=== PATIENT | female | born 1970 | race Caucasian/White ===

== ENCOUNTER 2017-02-23 17:51 | Emergency (ER) | payer BC, MEDICAID ==
[2017-02-23] MEDS ORDERED: Albuterol/Ipratropium 3.0-0.5 MG/3 ML Neb Soln NEB ONE (18:08)
[2017-02-23] MEDS ORDERED: methylPREDNISolone Sodium Succinate 125 MG/2 ML SDV IM ONE (18:45)
--- NOTE | 2017-02-23 18:54 | EDM.PDOC ---
ED HPI GENERAL MEDICAL PROBLEM - General Chief Complaint: Respiratory Problem Stated Complaint: NOT FEELING WELL Time Seen by Provider: 02/23/17 18:51 Source of Information: Reports: Patient History Limitations: Reports: No Limitations - History of Present Illness INITIAL COMMENTS - FREE TEXT/NARRATIVE: History of present illness: [46-year-old female comes in with complaints of an intractable cough. Patient was recently treated for an upper reinfection.] Review of systems: As per history of present illness and below otherwise all systems reviewed and negative. Past medical history: As per history of present illness and as reviewed below otherwise noncontributory. Surgical history: As per history of present illness and as reviewed below otherwise noncontributory. Social history: No reported history of drug or alcohol abuse. Family history: As per history of present illness and as reviewed below otherwise noncontributory. Physical exam: HEENT: Atraumatic, normocephalic, pupils reactive, negative for conjunctival pallor or scleral icterus, mucous membranes moist, throat clear, neck supple, nontender, trachea midline. Lungs: Dim throughout with a coarse nonproductive cough, breath sounds equal bilaterally, chest nontender. Heart: S1S2, regular, negative for clicks, rubs, or JVD. Abdomen: Soft, nondistended, nontender. Negative for masses or hepatosplenomegaly. Negative for costovertebral tenderness. Pelvis: Stable nontender. Genitourinary: Deferred. Rectal: Deferred. Extremities: Atraumatic, negative for cords or calf pain. Neurovascular unremarkable. Neuro: Awake, alert, oriented. Cranial nerves II through XII unremarkable. Cerebellum unremarkable. Motor and sensory unremarkable throughout. Exam nonfocal. Patient is concerned she might drink remains a pneumonia and would like a chest x-ray to evaluate that Diagnostics: [] Therapeutics: [DuoNeb] Impression: [Bronchitis] Plan: [] Definitive disposition and diagnosis as appropriate pending reevaluation and review of above. chest heaviness Pain Score (Numeric/FACES): 6 - Related Data Allergies Allergy/AdvReac Type Severity Reaction Status Date / Time No Known Allergies Allergy Verified 02/23/17 18:12 Home Meds: Home Meds ARIPiprazole [Aripiprazole] 5 mg PO DAILY 02/23/17 [History] Dexlansoprazole [Dexilant] 30 mg PO DAILY 02/23/17 [History] Diltiazem HCl [Diltiazem 24Hr Cd] 180 mg PO DAILY 02/23/17 [History] Escitalopram Oxalate [Lexapro] 30 mg PO DAILY 02/23/17 [History] Fesoterodine Fumarate [Toviaz] 4 mg PO DAILY 02/23/17 [History] Gabapentin [Neurontin] 800 mg PO QID 02/23/17 [History] Ibuprofen [Motrin] 800 mg PO Q8H 02/23/17 [History] Levofloxacin 500 mg PO DAILY 02/23/17 [History] Levothyroxine Sodium [Levoxyl] 25 mcg PO DAILY 02/23/17 [History] Loratadine 10 mg PO DAILY 02/23/17 [History] Loratadine [Claritin] 10 mg PO DAILY 02/23/17 [History] Metoprolol Tartrate [Lopressor] 25 mg PO Q12HR 02/23/17 [History] Modafinil [Provigil] 200 mg PO DAILY 02/23/17 [History] atorvaSTATin Calcium [Atorvastatin Calcium] 10 mg PO DAILY 02/23/17 [History] tiZANidine HCl [Tizanidine HCl] 4 mg PO DAILY 02/23/17 [History] Past Medical History Cardiovascular History: Reports: High Cholesterol, Hypertension, [place] Gastrointestinal History: Reports: GERD Genitourinary History: Reports: Urinary Incontinence Psychiatric History: Reports: Bipolar, Other (See Below) Other Psychiatric History: boarder line personalitiy Endocrine/Metabolic History: Reports: Hypothyroidism Oncologic (Cancer) History: Reports: Uterine - Infectious Disease History Infectious Disease History: Reports: Chicken Pox - Past Surgical History Cardiovascular Surgical History: Reports: None GI Surgical History: Reports: Hernia, Abdominal Musculoskeletal Surgical History: Reports: Other (See Below) Other Musculoskeletal Surgeries/Procedures:: L4-S1 fusion Social & Family History - Family History Family Medical History: Noncontributory - Tobacco Use Smoking Status *Q: Never Smoker Second Hand Smoke Exposure: No - Caffeine Use Caffeine Use: Reports: Coffee, Energy Drinks, Soda, Tea - Recreational Drug Use Recreational Drug Use: No ED ROS GENERAL - Review of Systems Review Of Systems: See Below (History of present illness) ED EXAM, GENERAL - Physical Exam Exam: See Below (See history of present illness) Course - Orders/Labs/Meds Orders: Active Orders 24 hr Category Date Time Status RT Aerosol Therapy [RC] ASDIRECTED Care 02/23/17 18:08 Ordered Chest 2V [CR] Stat Exams 02/23/17 18:08 Ordered Meds: Medications Discontinued Medications Generic Name Dose Route Start Last Admin Trade Name Cabrera PRN Reason Stop Dose Admin Albuterol/Ipratropium 3 ml 02/23/17 18:08 02/23/17 18:15 Duoneb 3.0-0.5 Mg/3 Ml NEB 02/23/17 18:09 3 ml ONETIME ONE Administration Methylprednisolone Sodium Succinate 125 mg 02/23/17 18:45 Solu-Medrol IM 02/23/17 18:46 ONETIME ONE Departure - Departure Time of Disposition: 18:52 Disposition: Home, Self-Care 01 Condition: Good Clinical Impression: Bronchitis - Discharge Information Instructions: Acute Bronchitis, [id number] Referrals: PCP,None [Primary Care Provider] - Additional Instructions: The following information is given to patients seen in the emergency department who are being discharged to home. This information is to outline your options for follow-up care. We provide all patients seen in our emergency department with a follow-up referral. The need for follow-up, as well as the timing and circumstances, are variable depending upon the specifics of your emergency department visit. If you don't have a primary care physician on staff, we will provide you with a referral. We always advise you to contact your personal physician following an emergency department visit to inform them of the circumstance of the visit and for follow-up with them and/or the need for any referrals to a consulting specialist. The emergency department will also refer you to a specialist when appropriate. This referral assures that you have the opportunity for follow-up care with a specialist. All of these measure are taken in an effort to provide you with optimal care, which includes your follow-up. Under all circumstances we always encourage you to contact your private physician who remains a resource for coordinating your care. When calling for follow-up care, please make the office aware that this follow-up is from your recent emergency room visit. If for any reason you are refused follow-up, please contact the [facility] Emergency Department at and asked to speak to the emergency department charge nurse. Take medication as directed Spoke with your PCP in 2-3 days return to the ER as needed as discussed - My Orders Last 24 Hours: My Active Orders 02/23/17 18:08 RT Aerosol Therapy [RC] ASDIRECTED Chest 2V [CR] Stat - Assessment/Plan Last 24 Hours: My Active Orders 02/23/17 18:08 RT Aerosol Therapy [RC] ASDIRECTED Chest 2V [CR] Stat
--- NOTE | 2017-02-25 19:49 | CR ---
EXAM DATE: 02/23/17 PATIENT'S AGE: 46 Patient: BRO MONTES Facility: [place], [place] Site . Site : 1970 Study: XRay Chest [id number] 6:32:22 PM Ordering Physician: Doctor Archuleta Final Report: CHEST 2 VIEWS INDICATION: Cough. Shortness of breath. IMPRESSION: Normal heart size and vascular pattern. Lungs are clear. No pneumothorax or pleural abnormality. Thoracic spinal electrode leads are present. Dictated by Mauri Calderon MD @ Feb 23 2017 6:36PM (Electronic Signature) Report Signed by Proxy. WILLIAMS
== END 2017-02-23 19:26 | disposition home or self-care (01) ==
LOC: MW.ED 17:51
DX: J40 Bronchitis, not specified as acute or chronic (principal); E78.00 Pure hypercholesterolemia, unspecified; I10 Essential (primary) hypertension; Z79.899 Other long term (current) drug therapy
CPT/HCPCS: 71020; 94640; 96372; 99284; J2930; 99283